=== PATIENT | female | born 1945 | race Caucasian/White ===

== ENCOUNTER → 2017-02-19 | Outpatient (CLI) | payer OTHER | LOC: EEVIPCON 13:53 → FIMAGING 13:53 | PROVIDERS: ATTEND Internal Medicine Pulmonary Disease | DX: J98.4 Other disorders of lung (principal); J45.909 Unspecified asthma, uncomplicated ==

== ENCOUNTER → 2017-07-18 | Outpatient (CLI) | payer MEDICARE, OTHER | LOC: FLAB 12:48 | PROVIDERS: ATTEND Internal Medicine Pulmonary Disease | DX: J15.9 Unspecified bacterial pneumonia (principal); J45.30 Mild persistent asthma, uncomplicated ==

== ENCOUNTER → 2018-09-11 | Outpatient (CLI) | payer OTHER | LOC: GIMAGING 08:18 | PROVIDERS: ATTEND Registered Nurse | DX: R05 Cough (principal); R50.9 Fever, unspecified; J45.20 Mild intermittent asthma, uncomplicated | CPT/HCPCS: 71046-PO ==

== ENCOUNTER → 2018-10-10 | Outpatient (CLI) | payer OTHER | LOC: FIMAGING 09:55 ==